=== PATIENT | female | born 1970 | race Caucasian/White ===

== ENCOUNTER → 2021-06-18 | Outpatient (CLI) | payer BC ==
--- NOTE | 2021-06-18 13:39 | RAD ---
Examination: LEFT LOWER EXTREMITY - UNILATERAL VENOUS DOPPLER Technique: Ultrasound evaluation of the left lower extremity was performed from the groin to the uppe r calf with meyers scale, spectral and color doppler evaluation. Indication: Leg swelling Comparison: None Findings: There is normal venous flow and compressibility of left common femoral vein, femoral vein, popliteal vein, and visualized proximal calf veins. Impression: No evidence for deep vein thrombosis of left lower extremity from the level of the calf v eins to the groins. Electronically signed by: Vin Parra MD (06/18/2021 1:36 PM) JEREMY
--- NOTE | 2021-06-18 14:17 | RAD ---
EXAM: AP, lateral and oblique views of the left knee DATE: 06/18/2021 1:26 PM INDICATION: Reason: LEFT KNEE PAIN. / Spl. Instructions: / History: COMPARISON: No Prior FINDINGS: No acute fracture or dislocation. No joint effusion. Joint spaces are preserved without significant degenerative/proliferative change. IMPRESSION: No acute fracture or dislocation. Electronically signed by: Vin Parra MD (06/18/2021 2:14 PM) JEREMY
== END ==
LOC: US 12:49
PROVIDERS: ATTEND Specialist
DX: M25.562 Pain in left knee (principal)
CPT/HCPCS: 73562; 93971